=== PATIENT | female | born 1945 | race Caucasian/White ===

== ENCOUNTER 2023-06-25 11:53 | Outpatient (CLI) | payer MEDICARE, BC ==
--- NOTE | 2023-06-25 18:47 | MRI Report ---
PROCEDURE: MRI brain without contrast INDICATIONS: ALZHEIMERS DISEASE TECHNIQUE: Multiplanar multisequential MR images of the brain were obtained without contrast COMPARISON: None FINDINGS: CSF Spaces: Basal cisterns are patent. No extra-axial fluid collections. Ventricles are normal in size and shape. Brain: No intracranial masses or hemorrhage. Sales/white matter interface is normal. Brainstem appe ars normal. Diffusion-weighted images shows no evidence of acute infarct. Normal intravascular flow voids are present. Moderate atrophy and multifocal white matter chronic ischemic change Skull and face: Calvarium has normal marrow signal. Orbits appear normal. Hyperostosis frontalis interna noted. Bilateral intraocular lens replacements noted. Sinuses: 8 mm left maxillary sinus retention cyst IMPRESSION: Moderate atrophy and white matter chronic ischemic change without acute infarct, hemorrhage or mass l esion Reviewed by: Armando Cuevas MD on 06/25/2023 5:46 PM AKCALLI Approved by: Armando Cuevas MD on 06/25/2023 5:46 PM AKDT Station ID: [id number]
== END 2023-06-25 11:54 | disposition home or self-care (01) ==
LOC: DI 11:53
PROVIDERS: ATTEND Psychiatry & Neurology Neurology
DX: G30.9 Alzheimer's disease, unspecified (principal); F02.80 Dementia in other diseases classified elsewhere, unspecified severity, without behavioral disturbance, psychotic disturbance, mood disturbance, and anxiety